=== PATIENT | male | born 1995 | race Caucasian/White ===

== ENCOUNTER 2020-04-15 17:51 | Emergency (ER) | payer SELFPAY ==
[2020-04-15 17:58] VITALS: BP 145/72; PULSE 86; RESP 16; TEMP 36.7; O2SAT 97; BMI 23.6
--- NOTE | 2020-04-15 18:21 | W.ED.SKABFB ---
HPI - Skin/Abscess/Foreign Bdy General: Chief complaint: Skin/Abscess/Foreign Body Stated complaint: poss spider bite Time Seen by Provider: 04/15/20 18:07 History of Present Illness: HPI narrative: Patient complains about a lesion underneath the rim of his penis is been there few days he described as painful patient did have unprotected sex here about a week ago also he said this area started before then but more painful after that denies any other problems MD complaint: other (Tender area on penis) Onset (ago): day(s) Tetanus up to date: yes Location: genitals Severity: mild Associated symptoms: Deny chills, fever(s), nausea or vomiting Review of Systems Const: Denies: fever(s), chills or body aches Eyes: Denies: change in vision or blurry vision ENMT: Denies: throat pain or nasal congestion Card: Denies: chest pain or dyspnea on exertion Resp: Denies: dyspnea, productive cough or non-productive cough GI: Denies: abdominal pain, nausea or vomiting : Reports: genital lesions (Times a few days supposedly there before unprotected sex); Denies: difficulty urinating Musc: Denies: extremity pain Skin/Breast: Denies: rash Neuro: Denies: headache(s) Psych: Denies: anxiety or depression [place]/Lymph: Denies: easy bruising PFSH ED PFSH: Social History Smoking and tobacco status: current every day smoker Physical Exam Const: COMMON NORMALS: no acute distress, average body habitus and patient oriented x3 HENMT: COMMON NORMALS: normocephalic HEAD & SCALP: normal to inspection and normocephalic FACE & SINUS: normal facial exam Eye: COMMON NORMALS: conjunctivae normal GENERAL EYE: appearance normal, both eyes and all related structures CONJUNCTIVA: Yes conjunctivae normal Neck/C-Spine: COMMON NORMALS: no JVD Chest: COMMONS NORMALS: normal inspection of the chest Resp: COMMON NORMALS: normal respiratory effort and clear to auscultation bilaterally AUSCULTATION: clear to auscultation bilaterally Cardio: COMMON NORMALS: no JVD, regular rate and regular rhythm RATE: regular rate RHYTHM: regular rhythm GI: COMMON NORMALS: Normal to inspection, nondistended, normoactive bowel sounds present : MALE GROIN/PERINEUM EXAM: Yes Genital lesions present PENIS: Genital lesions present Details: Yes Other urethral lesion findings present (chan[place] under the rim of the penis mild erythema surrounding it no discharge) GENITAL IMAGES (MALE): 1. Extremity: COMMON NORMALS: normal to inspection and full ROM Neuro: COMMON NORMALS: patient oriented x3 Course Vital Signs: Vital signs: Vital Signs Temperature 98.0 F 04/15/20 17:58 Pulse Rate 86 04/15/20 17:58 Respiratory Rate 16 04/15/20 17:58 Blood Pressure 145/72 04/15/20 17:58 Pulse Oximetry 97 04/15/20 17:58 MDM - Skin/Abscess/Foreign Bdy MDM Narrative: Medical decision making narrative: [place] patient describes it is painful so it does not sound like syphilis will go ahead and treat like it is though does not appear to be a spider bite Discharge Plan Discharge Patient Disposition: Home, Self-Care Clinical Impression: [place] Condition: Stable Discharge Orders: Discharge Order (Routine); Ordered 04/15/20 Ordered By: Stas Patel Discharge Diet: Usual diet Discharge Activity: Resume usual activity Patient Instructions: Syphilis (ED) Activity Restrictions/Additional Instructions: Low up in 2 to 3 days obtain lab test tablets primary care provider do not have unprotected sex and do not have sex until you find out what test result is Coding Level of Care Code 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
[2020-04-15] MEDS: penicillin g (L-A) 1,200,000 unit/2 mL Syr 2400000 UNIT IM (18:40)
[2020-04-15] MEDS: penicillin g (L-A) 1,200,000 unit/2 mL Syr 2.4 UNIT IM (18:40)
[2020-04-15 18:57] VITALS: BP 125/85; PULSE 75; RESP 15; O2SAT 98
[2020-04-15 19:33] LABS: Rapid Plasma Reagin Syphilis Nonreactive (Nonreactive)
== END 2020-04-15 18:58 | disposition home or self-care (01) ==
LOC: ER 04-16 07:46
PROVIDERS: Emergency Provider Nurse Practitioner Family
DX: A51.0 Primary genital syphilis (principal); F17.210 Nicotine dependence, cigarettes, uncomplicated
CPT/HCPCS: 12345; 36415; 86592; 96372; 99281; 99283; J0561